=== PATIENT | female | born 1980 | race Caucasian/White ===

== ENCOUNTER 2020-10-05 08:34 | Emergency (ER) | payer OTHER ==
[2020-10-05 10:20] LABS: BILIRUBIN 1+ mg/dL (NEGATIVE); BLOOD 3+ Ery/uL (NEGATIVE); CLARITY HAZY (CLEAR); COLOR BROWN (YELLOW); GLUCOSE (U) NORMAL (NORMAL); LEUKOCYTES NEGATIVE Leu/uL (NEGATIVE); NITRITE NEGATIVE (NEGATIVE); PROTEIN 1+ mg/dL (NEGATIVE); SPECIFIC GRAVITY >=1.030 (1.001-1.030); UROBILINOGEN 0.2 mg/dL (0.2-1.0); pH 5.5 (5.0-9.0)
[2020-10-05 10:29] LABS: BACTERIA TRACE; MUCOUS TRACE; URINARY RBC TNTC; URINARY WBC RARE
[2020-10-05 10:37] LABS: BASOPHIL 0.8 % (0-2); EOSINOPHIL 2.4 & (0-5); HCT 41.9 % (37.0-47.0); HGB 13.9 g/dl (12.5-16.0); LYMPHOCYTE 13.3 % (15-48); MCH 29.4 pg (25.0-31.0); MCHC 33.2 g/dL (32.0-36.0); MCV 88.8 fL (78.0-100.0); MONOCYTE 5.4 % (0-12); MPV 10.4 fL (6.0-9.5); NEUTROPHIL 77.6 % (41-80); PLT 267 K/uL (150-400); RBC 4.72 M/uL (4.20-5.40); RDW 12.2 % (11.5-14.0); WBC 10.74 K/uL (4.0-10.5)
[2020-10-05 10:51] LABS: BUN/CREAT RATIO (CALC) 11.8 RATIO; CREATININE 0.85 mg/dL (0.51-0.95); POTASSIUM 4.4 mmol/L (3.5-5.1)
[2020-10-05] MEDS ORDERED: NAPROXEN500 MG PO ×2 (11:16→11:21)
[2020-10-05] MEDS ORDERED: NORCO 5-325 TA1 EACH PO ×2 (11:16→11:21)
[2020-10-05] MEDS ORDERED: FLOMAX 0.4 MG0.4 MG PO ×2 (11:16→11:21)
== END 2020-10-05 11:43 | disposition home or self-care (01) ==
LOC: FER 08:34
PROVIDERS: Emergency Medicine
DX: N13.2 Hydronephrosis with renal and ureteral calculous obstruction (principal); F17.290 Nicotine dependence, other tobacco product, uncomplicated; Z90.49 Acquired absence of other specified parts of digestive tract; Z98.890 Other specified postprocedural states
CPT/HCPCS: 36415; 80048; 81001; 85025; J1885

== ENCOUNTER 2021-02-23 18:48 | Emergency (ER) | payer OTHER ==
[~2021-02-23 18:48] MED LIST: FLOMAX 0.4 MG0.4 MG PO; NAPROXEN500 MG PO; NORCO 5-325 TA1 EACH PO
[2021-02-23] MEDS ORDERED: PREDNISONE 20MG20 MG PO (21:38)
[2021-02-23] MEDS ORDERED: VENTOLIN HFA IN18 GM INH (21:38)
== END 2021-02-23 22:30 | disposition home or self-care (01) ==
LOC: FER 18:48
DX: U07.1 COVID-19 (principal); E03.9 Hypothyroidism, unspecified; Z79.890 Hormone replacement therapy
CPT/HCPCS: 71045; 94640; 94664; J1100

== ENCOUNTER 2021-09-06 11:32 | Emergency (ER) | payer OTHER ==
[~2021-09-06 11:32] MED LIST changes: +PREDNISONE 20MG20 MG PO; +VENTOLIN HFA IN18 GM INH
[2021-09-06] MEDS ORDERED: LEVOTHYROXINE300 MCG PO (12:28)
[2021-09-06 13:23] LABS: BASOPHIL 0.5 % (0-2); EOSINOPHIL 2.9 % (0-5); HCT 41.5 % (37.0-47.0); HGB 13.8 g/dl (12.5-16.0); LYMPHOCYTE 20.6 % (15-48); MCH 29.2 pg (25.0-31.0); MCHC 33.3 g/dL (32.0-36.0); MCV 87.9 fL (78.0-100.0); MONOCYTE 4.4 % (0-12); MPV 10.3 fL (6.0-9.5); NRBC 0; PLT 269 K/uL (150-400); RBC 4.72 M/uL (4.20-5.40); RDW 12.6 % (11.5-14.0); WBC 10.2 K/uL (4.0-10.5)
[2021-09-06 13:42] LABS: CREATININE 0.93 mg/dL (0.51-0.95); POTASSIUM 4.5 mmol/L (3.5-5.1)
== END 2021-09-06 14:34 | disposition home or self-care (01) ==
LOC: FER 11:32
PROVIDERS: Nurse Practitioner Family
DX: U07.1 COVID-19 (principal)
CPT/HCPCS: 36415; 71045; 80048; 85025; J1100; J2405; J7030